=== PATIENT | male | born 1945 | race Caucasian/White ===

== ENCOUNTER 2018-04-05 09:34 | Inpatient (IN) ==
[2018-04-05] MEDS ORDERED: Sod Chloride 0.9% Inj 1,000 ML IV.CONT SCH (10:00)
--- NOTE | 2018-04-05 10:18 | CT ---
EXAM DATE: 04/05/2018 9:59 AM EDT AGE/SEX: 72 years / Male INDICATIONS: Left sided weakness. CLINICAL DATA: This is the patient's initial encounter. Patient reports that signs and symptoms have been present for 1 day and indicates a pain score of 2/10. MEDICAL/SURGICAL HISTORY: Gastroesophageal reflux disease. Cirrhosis. Emphysema. Hepatitis c, re nal cyst. None. RADIATION DOSE: 37.90 CTDI (mGy) COMPARISON: No prior exams available for comparison. TECHNIQUE: CT of the head without contrast. Using automated exposure control and adjustment of the mA and/or kV according to patient size, radiation dose was kept as low as reasonably achievable to ob tain optimal diagnostic quality images. DICOM format image data is available electronically for revi ew and comparison. FINDINGS: Cerebrum: Mild cerebral atrophy is noted. No evidence of midline shift, mass lesion, hemorrhage or a cute infarction. No extraaxial fluid collections are seen. There is a partially calcified left front al extra-axial lesion measuring 16 mm consistent with possible meningioma. Focal small craniectomy de fect is noted adjacent to this lesion. Posterior Fossa: The cerebellum and brainstem are intact. The 4th ventricle is midline. The cerebe llopontine angle is unremarkable. Extracranial: The visualized portion of the orbits is intact. Skull: The calvaria is intact. No evidence of skull fracture. CONCLUSION: 1. Mild cerebral atrophy. 2. No acute hemorrhage, acute infarct, midline shift or extra-axial bleed. 3. Partially calcified left frontal extra-axial lesion measuring 16 mm consistent with possible meni ngioma. Focal small craniectomy defect is noted adjacent to this lesion. . Electronically signed by: Johnnie Sheets MD 04/05/2018 10:17 AM EDT
[2018-04-05 10:20] LABS: Baso # (Auto) 0.1 th/mm3 (0.0-0.2); Eos # (Auto) 0.1 th/mm3 (0.0-0.4); Eos % (Auto) 1.5 % (0.0-4.0); Hematocrit 49.4 % (39.0-51.0); Lymph # (Auto) 2.4 th/mm3 (1.0-4.8); Lymph % (Auto) 29.3 % (9.0-44.0); Mean Corpuscular HGB Conc 34.4 % (32.0-36.0); Mean Corpuscular Hemoglobin 30.1 pg (27.0-34.0); Mean Corpuscular Volume 87.6 fL (80.0-100.0); Mono # (Auto) 0.8 th/mm3 (0.0-0.9); Mono % (Auto) 10.1 % (0.0-8.0); Neut # (Auto) 4.7 th/mm3 (1.8-7.7); Neut % (Auto) 58.1 % (16.0-70.0); Platelet Count 250 th/mm3 (150-450); Red Blood Count 5.64 mil/mm3 (4.50-5.90); Red Cell Distribution Width 14.4 % (11.6-17.2); White Blood Count 8.1 th/mm3 (4.0-11.0)
--- NOTE | 2018-04-05 10:20 | XR ---
EXAM DATE: 04/05/2018 9:55 AM EDT AGE/SEX: 72 years / Male INDICATIONS: Short of breath, loss of balance, AMS CLINICAL DATA: This is the patient's initial encounter. Patient reports that signs and symptoms have been present for 2 days and indicates a pain score of 0/10. MEDICAL/SURGICAL HISTORY: None. None. [place] [facility] [place] . FINDINGS: A single AP view of the chest demonstrates the lungs to be symmetrically aerated without evidence of mass, infiltrate or effusion. The cardiomediastinal contours are unremarkable. Osseous structures a re intact. CONCLUSION: Negative examination. Electronically signed by: Johnnie Sheets MD 04/05/2018 10:19 AM EDT
[2018-04-05 10:33] LABS: Activated Partial Thrombo Time 25.1 sec (24.3-30.1); Prothrombin Time 10.6 sec (9.8-11.6)
[2018-04-05 10:42] LABS: Alanine Aminotransferase 44 U/L (12-78); Albumin 4.1 g/dL (3.4-5.0); Anion Gap 11 meq/L (5-15); Aspartate Aminotransferase 32 U/L (15-37); Blood Urea Nitrogen 14 mg/dL (7-18); Calcium 8.8 mg/dL (8.5-10.1); Carbon Dioxide 28.3 meq/L (21.0-32.0); Chloride 100 meq/L (98-107); Glomerular Filtration Rate 65 mL/min (>89); Glucose,Random 94 mg/dL (74-106); Potassium 3.8 meq/L (3.5-5.1); Sodium 139 meq/L (136-145)
[2018-04-05 10:46] LABS: Alkaline Phosphatase 63 U/L (45-117); Total Protein 8.8 g/dL (6.4-8.2)
[2018-04-05 10:47] LABS: Creatine Kinase 95 U/L (39-308)
--- NOTE | 2018-04-05 11:39 | ED ---
HPI General Chief Complaint: Neuro Symptoms/Deficit Stated Complaint: left side weakness Time Seen by Provider: 04/05/18 09:43 Source: patient and family Mode of arrival: ambulatory Limitations: no limitations History of Present Illness HPI Narrative: Patient is a 72-year-old male with history of hepatitis C and liver cirrhosis from history of alcoholism sober for several years GERD and emphysema secondary to heavy tobacco smoking presenting with complaint of left upper and lower extremity weakness since yesterday noon. Patient was unable to walk and lost balance fell on the bed. There was no head injury or LOC. Symptoms are still present and he was brought in with his by his for evaluation. Family also reported some slurred speech that has resolved by now. Patient was having difficulty getting dressed and using his left upper lower extremities. Patient denies any other symptoms at this time. No headache. His blood pressure is elevated and does not have diagnosis of hypertension. Onset (ago): hour(s) (10) Time: 12:00 Last Observed Normal: 12:00 Timing confirmed by: spouse Location: Reports speech, left arm and left leg History of same: No Severity: mild Quality: Reports weak and tingling Relieving factors: none Exacerbating factors: none Context: Reports sudden onset On Anticoagulants: No Associated symptoms: Reports denies other symptoms Treatments Prior to Arrival: Reports none Related Data Home Medications Medication Instructions Recorded Confirmed No Known Home Medications 04/05/18 04/05/18 Allergies Allergy/AdvReac Type Severity Reaction Status Date / Time codeine Allergy Severe Nausea/Vomi Unverified 04/05/18 09:44 ting Review of Systems ROS: all other systems reviewed are negative [facility] Medical History Medical History Cirrhosis (Acute) Emphysema, unspecified (Acute) H/O gastroesophageal reflux (GERD) (Acute) Hepatitis C (Acute) History of alcoholism (Acute) Renal cyst (Acute) Social History Social History Substance History: No History of Abuse Second Hand Smoke Exposure: Yes Smoking Status: Heavy tobacco smoker Tobacco Type: Cigarettes How Often Do You Have a Drink Containing Alcohol: Monthly or less Recent Travel in [facility] within the Last 8 Weeks: No Recent Out of Country Travel within the Last 8 Weeks: No Immunization History Tetanus Immunization: Unsure Hx Influenza Vaccine This Season: No Exam Narrative Exam Narrative: GENERAL: Alert and oriented no distress SKIN: Focused skin assessment warm/dry. HEAD: Atraumatic. Normocephalic. EYES: Pupils equal and round. No scleral icterus. No injection or drainage. ENT: No nasal bleeding or discharge. Mucous membranes pink and moist. NECK: Trachea midline. No JVD. CARDIOVASCULAR: Regular rate and rhythm. No murmur appreciated. RESPIRATORY: No accessory muscle use. Clear to auscultation. Breath sounds equal bilaterally. GASTROINTESTINAL: Abdomen soft, non-tender, nondistended. Hepatic and splenic margins not palpable. MUSCULOSKELETAL: No obvious deformities. No clubbing. No cyanosis. No edema. PSYCHIATRIC: Appropriate mood and affect; insight and judgment normal. Neuro General: alert, awake, oriented x3, moves all extremities, normal light touch, pain and propioception, CN's II-XI intact bilaterally, normal sensation to monofilament, deep tendon reflexes 2+ bilaterally, not confused, not obtunded and unable to assess gait Motor: strength not 5/5 throughout and strength abnormal left distal upper extremity flexion 4 / 53 / 5 and extension 4 / 53 / 5left distal lower extremity flexion 4 / 53 / 5 and extension 4 / 53 / 5 Sensory Exam: no sensory deficits noted DTR's: Rt Brachioradialis: 2+, Lt Brachioradialis: 2+, Rt Patellar: 2+ and Lt Patellar: 2+ Plantar Reflexes: Downgoing: bilateral Coordination: [id number] test abnormal (Abnormal on left upper extremity) and [id number] test normal (Abnormal on left lower extremity) Course Hospital Course: Patient evaluated in the emergency department for acute stroke. Onset of symptoms was 10 hours ago so he is outside window for TPA however his CT of the head was negative for acute intracranial process. Findings were discussed with neurology recommended MRI MRA and admission for further evaluation. Clonidine was given for hypertension with improvement of his elevated BP however he is symptoms and deficits remained the same. Hemodynamically stable alert and oriented not appearing septic. Initial Documented Vital Signs Temperature 97.3 F L 04/05/18 09:37 Pulse Rate 74 10 09:37 Respiratory Rate 15 04/05/18 09:37 Blood Pressure 172/103 H 04/05/18 09:37 Pulse Oximetry 96 10/05/18 09:37 Last Documented Vital Signs Temperature 98.0 F 04/05/18 16:00 Pulse Rate 72 04/05/18 16:00 Respiratory Rate 18 04/05/18 16:00 Blood Pressure 128/97 H 04/05/18 16:00 Pulse Oximetry 97 04/05/18 16:00 Critical Care Time Critical Care Time: Yes Total Critical Care Time: 30 Attestation: Aggregate critical care time was 30 minutes. Time to perform other separately billable procedures was not included in the critical care time. My time did not include minutes spent treating any other patients simultaneously or on activities that did not directly contribute to the patient's treatment. The services I provided to this patient were to treat and/or prevent clinically significant deterioration that could result in: permanent disability and or I provided critical care services requiring my management, as noted below: Chart data review, documentation time, medication orders and management, vital sign assessments/reviewing monitor data, ordering and reviewing lab tests, ordering and interpreting/reviewing x-rays and diagnostic studies, care of the patient and discussion of the patient with the admitting physicians. NIH Stroke Scale NIHSS Time Completed NIHSS Time Completed: 09:45 NIH Stroke Scale Level of Consciousness: 0-Alert Orientation Questions: 0-Answers both correct Responds to Commands: 0-Both tasks correct Gaze Eye Movement: 0-Horizontal movement WNL Visual Shaffer: 0-No visual field defect Facial Movement: 0-Normal Motor Functions Arm LEFT: 0-No drift Motor Functions Arm RIGHT: 0-No drift Motor Functions Leg LEFT: 1-Drift before 5 seconds Motor Functions Leg RIGHT: 0-No drift Limb Ataxia: 2-Ataxia in two limbs Sensory Loss: 0-No sensory loss Best Language: 0-Normal Articulation: 0-Normal Extinction or Inattention Sensory: 0-Absent Total: 3 Medical Decision Making MDM Narrative Medical decision making narrative: Patient with strokelike deficits and negative CT head. We are obtaining MRI and results are pending at this time based on neurology recommendations. This not a TPA candidate. Aspirin given started on fluids and was admitted for further evaluation. Due to elevated BP Medical Screen Exam Complete: Yes Emergency Medical Condition: Yes Lab Data Lab results reviewed: Yes I reviewed the patient's lab results. Result diagrams: 04/05/18 10:00 04/05/18 10:00 Lab Results 04/05/18 04/05/18 04/05/18 Range/Units 10:00 10:00 10:00 WBC 8.1 (4.0-11.0) th/mm3 RBC 5.64 (4.50-5.90) mil/mm3 Hgb 17.0 (13.0-17.0) gm/dL Hct 49.4 (39.0-51.0) % MCV 87.6 (80.0-100.0) fL MCH 30.1 (27.0-34.0) pg MCHC 34.4 (32.0-36.0) % RDW 14.4 (11.6-17.2) % Plt Count 250 (150-450) th/mm3 MPV 7.0 (7.0-11.0) fL Neut % (Auto) 58.1 (16.0-70.0) % Lymph % (Auto) 29.3 (9.0-44.0) % [place] % (Auto) 10.1 H (0.0-8.0) % Eos % (Auto) 1.5 (0.0-4.0) % Baso % (Auto) 1.0 (0.0-2.0) % Neut # (Auto) 4.7 (1.8-7.7) th/mm3 Lymph # (Auto) 2.4 (1.0-4.8) th/mm3 [place] # (Auto) 0.8 (0.0-0.9) th/mm3 Eos # (Auto) 0.1 (0.0-0.4) th/mm3 Baso # (Auto) 0.1 (0.0-0.2) th/mm3 WBC Differential . Differential Comment Auto diff final PT 10.6 (9.8-11.6) sec INR 1.0 Ratio APTT 25.1 (24.3-30.1) sec Sodium 139 (136-145) meq/L Potassium 3.8 (3.5-5.1) meq/L Chloride 100 (98-107) meq/L Carbon Dioxide 28.3 (21.0-32.0) meq/L Anion Gap 11 (5-15) meq/L BUN 14 (7-18) mg/dL Creatinine 1.11 (0.60-1.30) mg/dL Estimated GFR 65 L (>89) mL/min Random Glucose 94 (74-106) mg/dL Calcium 8.8 (8.5-10.1) mg/dL Total Bilirubin 0.8 (0.2-1.0) mg/dL AST 32 (15-37) U/L ALT 44 (12-78) U/L Alkaline Phosphatase 63 (45-117) U/L Total Creatine Kinase 95 (39-308) U/L Troponin I Less than 0.02 L (0.02-0.05) ng/mL Total Protein 8.8 H (6.4-8.2) g/dL Albumin 4.1 (3.4-5.0) g/dL Urine Color (Yellw/Straw) Urine Clarity (Clear) Urine pH (5.0-8.5) Ur Specific [place] (1.002-1.035) Urine Protein (Neg-Trace) mg/dL Urine Glucose (UA) (Negative) mg/dL Urine Ketones (Negative) mg/dL Urine Occult Blood (Negative) Urine Nitrate (Negative) Urine Bilirubin (Negative) Urine Urobilinogen (Less than 2) mg/dL Ur Leukocyte Esterase (Negative) Urine WBC (0-5) /hpf Micro UA Comment Ur Microscopic Review Urine Culture Comments 04/05/18 Range/Units 15:18 WBC (4.0-11.0) th/mm3 RBC (4.50-5.90) mil/mm3 Hgb (13.0-17.0) gm/dL Hct (39.0-51.0) % MCV (80.0-100.0) fL MCH (27.0-34.0) pg MCHC (32.0-36.0) % RDW (11.6-17.2) % Plt Count (150-450) th/mm3 MPV (7.0-11.0) fL Neut % (Auto) (16.0-70.0) % Lymph % (Auto) (9.0-44.0) % [place] % (Auto) (0.0-8.0) % Eos % (Auto) (0.0-4.0) % Baso % (Auto) (0.0-2.0) % Neut # (Auto) (1.8-7.7) th/mm3 Lymph # (Auto) (1.0-4.8) th/mm3 [place] # (Auto) (0.0-0.9) th/mm3 Eos # (Auto) (0.0-0.4) th/mm3 Baso # (Auto) (0.0-0.2) th/mm3 WBC Differential Differential Comment PT (9.8-11.6) sec INR Ratio APTT (24.3-30.1) sec Sodium (136-145) meq/L Potassium (3.5-5.1) meq/L Chloride (98-107) meq/L Carbon Dioxide (21.0-32.0) meq/L Anion Gap (5-15) meq/L BUN (7-18) mg/dL Creatinine (0.60-1.30) mg/dL Estimated GFR (>89) mL/min Random Glucose (74-106) mg/dL Calcium (8.5-10.1) mg/dL Total Bilirubin (0.2-1.0) mg/dL AST (15-37) U/L ALT (12-78) U/L Alkaline Phosphatase (45-117) U/L Total Creatine Kinase (39-308) U/L Troponin I (0.02-0.05) ng/mL Total Protein (6.4-8.2) g/dL Albumin (3.4-5.0) g/dL Urine Color Yellow (Yellw/Straw) Urine Clarity Clear (Clear) Urine pH 6.0 (5.0-8.5) Ur Specific [place] 1.020 (1.002-1.035) Urine Protein Negative (Neg-Trace) mg/dL Urine Glucose (UA) Negative (Negative) mg/dL Urine Ketones Trace H (Negative) mg/dL Urine Occult Blood Negative (Negative) Urine Nitrate Negative (Negative) Urine Bilirubin Negative (Negative) Urine Urobilinogen Less than 2 (Less than 2) mg/dL Ur Leukocyte Esterase Negative (Negative) Urine WBC 1 (0-5) /hpf Micro UA Comment Culture not ind Ur Microscopic Review Not Reportable Urine Culture Comments Culture not ind Imaging Data Radiologist's impression: Chest X-Ray 04/05/18 09:55 CONCLUSION: Negative examination. Head CT 04/05/18 09:55 CONCLUSION: 1. Mild cerebral atrophy. 2. No acute hemorrhage, acute infarct, midline shift or extra-axial bleed. 3. Partially calcified left frontal extra-axial lesion measuring 16 mm consistent with possible meningioma. Focal small craniectomy defect is noted adjacent to this lesion. . Head MRI 04/05/18 11:35 CONCLUSION: 1. Focal signal abnormality involving the right meg on the diffusion-weighted images indicating acute/subacute infarct. 2. Mild diffuse cerebral atrophy. 3. Scattered old tiny lacunar infarcts are noted within the bilateral basal ganglia. 4. Focal encephalomalacia involving the left frontal lobe likely related to previous trauma in this location. 5. No evidence of enhancing extra-axial mass to suggest meningioma. 6. No acute hemorrhage, midline shift or extra-axial fluid collections. Head MRA 04/05/18 11:35 CONCLUSION: 1. Negative MRA [place] ([place] [facility] [place]) non contrast. ECG Data EKG Prior to Arrival: No Attestation: I personally reviewed and interpreted this ECG as follows: Interpretation: Sinus rhythm with right bundle branch block and a heart rate of 70 bpm. WI 162ms QTC 443ms. Nonspecific ST-T wave abnormalities. No signs of acute ischemia. Discharge Plan Discharge Disposition Patient Disposition: 30 Still Patient Discharge Condition Condition: Stable Discharge Details Diagnosis: CVA (cerebral vascular accident), Hypertension Physicians Team ED Provider: Kevin Olivares Primary Care Provider: Ayanna Schwartz Attending Provider: Romie Jimenez Other Providers: Feliz Rodrigues Discharge Interventions Interventions: ED Discharge Assessment Last Done: 04/05/18 14:28 Status ED Status: Left Department Discharge Information Discharge Date/Time: 04/05/18 14:10
--- NOTE | 2018-04-05 13:09 | MR ---
EXAM DATE: 04/05/2018 12:43 PM EDT AGE/SEX: 72 years / Male INDICATIONS: Left sided weakness. CLINICAL DATA: This is the patient's initial encounter. Patient reports that signs and symptoms have been present for 1 day and indicates a pain score of 0/10. MEDICAL/SURGICAL HISTORY: None. Appendectomy. Arrow to the head. COMPARISON: [facility] [place], [place] HEAD W & W/O CONTRAST, 04/05/2018. [facility] – [place], [place] HEAD W/O CONTRAST, 04/05/2018. . TECHNIQUE: 3D [id number] MRA was performed. Source images, multiplanar STS MIP, and 3D volum e MIP reconstructions were reviewed. FINDINGS: There is excellent visualization of the major intracranial arteries out to the second-order branch ve ssels. There is no evidence for aneurysm, vessel truncation or stenosis, and no evidence for vascula r malformation. CONCLUSION: 1. Negative MRA [place] ([place] [facility] [place]) non contrast. Electronically signed by: Johnnie Sheets MD 04/05/2018 1:07 PM EDT
[2018-04-05] MEDS ORDERED: Gadobutrol PF 7.5 MMOL/7.5 ML Vial (for RAD) IV.SIG ONE (13:13)
[2018-04-05] MEDS ORDERED: Aspirin 325 MG Tablet PO ONE (13:31)
[2018-04-05] MEDS ORDERED: Sod Chloride 0.9% Inj 1,000 ML IV.SIG ONE (13:31)
--- NOTE | 2018-04-05 13:35 | MR ---
EXAM DATE: 04/05/2018 12:43 PM EDT AGE/SEX: 72 years / Male INDICATIONS: Left sided weakness. CLINICAL DATA: This is the patient's initial encounter. Patient reports that signs and symptoms have been present for 1 day and indicates a pain score of 0/10. MEDICAL/SURGICAL HISTORY: None. Appendectomy. Arrow to the head. [place] [facility] [place]. . TECHNIQUE: Multiplanar, multisequence examination of the brain was performed without and with 7 ml Ga davist (gadobutrol) contrast as a single exam dose. FINDINGS: Cerebrum: Mild diffuse cerebral atrophy is noted. Scattered old tiny lacunar infarcts are noted withi n the bilateral basal ganglia. There is focal encephalomalacia involving the left frontal lobe likely related to previous trauma in this location. No evidence of midline shift, mass lesion, hemorrhage o r acute infarction. No extraaxial fluid collections are seen. The pituitary gland and suprasellar c istern are normal in configuration. White Matter: Minimal periventricular and subcortical white matter small vessel ischemic changes are noted bilaterally. Posterior Fossa: There is focal signal abnormality involving the right meg on the diffusion-weighted images indicating acute/subacute infarct. The 4th ventricle is midline. The cerebellopontine angle is unremarkable. The cerebellar tonsils are normal in position. Diffusion Imaging: No focal areas of restricted diffusion are seen. No evidence of acute infarction . Extracranial: The visualized portions of the orbits and paranasal sinuses are unremarkable. Post Contrast: No abnormal areas of parenchymal or dural enhancement. No evidence of blood-brain ba rrier breakdown. CONCLUSION: 1. Focal signal abnormality involving the right meg on the diffusion-weighted images indicating acu te/subacute infarct. 2. Mild diffuse cerebral atrophy. 3. Scattered old tiny lacunar infarcts are noted within the bilateral basal ganglia. 4. Focal encephalomalacia involving the left frontal lobe likely related to previous trauma in this location. 5. No evidence of enhancing extra-axial mass to suggest meningioma. 6. No acute hemorrhage, midline shift or extra-axial fluid collections. Electronically signed by: Johnnie Sheets MD 04/05/2018 1:33 PM EDT
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
[2018-04-05 16:50] LABS: Bilirubin,Urine Negative (Negative); Clarity,Urine Clear (Clear); Color,Urine Yellow (Yellw/Straw); Glucose,Urine (UA) Negative (Negative); Leukocyte Esterase,Urine Negative (Negative); Nitrite,Urine Negative (Negative)
--- NOTE | 2018-04-05 17:46 | ECHRPT ---
Indication: CVA/TIA CONCLUSIONS Normal left ventricular size. Wall thickness is normal. The left ventricular systolic function is normal with an estimated ejection fraction in the range of 55-60%. No definite regional wall motion abnormalities are present. Structurally normal mitral valve. Trace mitral valve regurgitation. There is mild tricuspid valve regurgitation. The estimated pulmonary arterial pressure is 30 mmHg. BP: / HR: Rhythm: MEASUREMENTS (Male / Female) Normal Values Technical Quality: 2D ECHO LV Diastolic Diameter PLAX 4.2 cm 4.2 - 5.9 / 3.9 - 5.3 cm LV Systolic Diameter PLAX 2.8 cm IVS Diastolic Thickness 1.1 cm 0.6 - 1.0 / 0.6 - 0.9 cm LVPW Diastolic Thickness 1.3 cm 0.6 - 1.0 / 0.6 - 0.9 cm LV Relative Wall Thickness 0.6 RV Internal Dim ED PLAX 3.0 cm LVOT Diameter 1.9 cm Aortic Root Diameter 3.4 cm LA Systolic Diameter LX 4.2 cm 3.0 - 4.0 / 2.7 - 3.8 cm LV Ejection Fraction MOD 4C 61.1 % LV Ejection Fraction 4C AL 61.9 % M-MODE Aortic Root Diameter MM 3.7 cm LA Systolic Diameter MM 3.9 cm LA Ao Ratio MM 1.1 AV Cusp Separation MM 2.4 cm DOPPLER AV Peak Velocity 121.0 cm/s AV Peak Gradient 5.9 mmHg LVOT Peak Velocity 91.8 cm/s LVOT Peak Gradient 3.4 mmHg AV Area Cont Eq pk 2.2 cm Mitral E Point Velocity 42.9 cm/s Mitral A Point Velocity 62.2 cm/s Mitral E to A Ratio 0.7 LV E' Lateral Velocity 8.2 cm/s Mitral E to LV E' Lateral Ratio 5.2 LV E' Septal Velocity 5.6 cm/s Mitral E to LV E' Septal Ratio 7.7 TR Peak Velocity 225.0 cm/s TR Peak Gradient 20.3 mmHg Right Atrial Pressure 10.0 mmHg Pulmonary Artery Systolic Pressu 30.3 mmHg Right Ventricular Systolic Press 30.3 mmHg PV Peak Velocity 105.0 cm/s PV Peak Gradient 4.4 mmHg FINDINGS LEFT VENTRICLE Normal left ventricular size. Wall thickness is normal. The left ventricular systolic function is normal with an estimated ejection fraction in the range of 55-60%. No definite regional wall motion abnormalities are present. RIGHT VENTRICLE Normal right ventricular size and systolic function. LEFT ATRIUM The left atrial size is normal. RIGHT ATRIUM The right atrial size is normal. ATRIAL SEPTUM Normal atrial septal thickness without atrial level shunting by limited color doppler interrogation. AORTA The aortic root and proximal ascending aorta are normal in size on limited imaging. MITRAL VALVE Structurally normal mitral valve. Trace mitral valve regurgitation. AORTIC VALVE Trileaflet aortic valve. No aortic valve stenosis or regurgitation. TRICUSPID VALVE There is mild tricuspid valve regurgitation. The estimated pulmonary arterial pressure is 30 mmHg. PULMONARY VALVE No pulmonary valve regurgitation or stenosis. VESSELS The inferior vena cava is normal in size. PERICARDIUM No pericardial effusion. Min Lee MD (Electronically Signed) Final Date:05 April 2018 17:45
--- NOTE | 2018-04-05 18:03 | MR ---
EXAM DATE: 04/05/2018 2:58 PM EDT AGE/SEX: 72 years / Male INDICATIONS: Stroke. CLINICAL DATA: This is the patient's initial encounter. Patient reports that signs and symptoms have been present for 1 day and indicates a pain score of 0/10. MEDICAL/SURGICAL HISTORY: None. Appendectomy. COMPARISON: No prior exams available for comparison. TECHNIQUE: 10 ml Gadavist (gadobutrol) contrast infused MRA (single exam dose) of the extracranial circulation was performed using a neurovascular coil. Postprocessing was performed, including rotati ng sub-volume maximum intensity projections of each carotid artery, rotating full-volume maximum inte nsity projections of both carotid arteries, sagittal and coronal sliding thin-slab reformations of ea ch carotid artery, and left oblique sliding thin-slab reformation through the aortic arch to include the origin of the arch branch vessels. FINDINGS: Aortic Arch : There is a three-vessel origin of the great vessels from the aorta. No evidence of o stial narrowing. Right Carotid : The common carotid artery is intact. The carotid bulb has a normal configuration wi thout ulceration or narrowing. The internal carotid artery lumen is smooth without stenosis. The ex ternal carotid artery is intact. Left Carotid : The common carotid artery is intact. The carotid bulb has a normal configuration wit hout ulceration or narrowing. The internal carotid artery lumen is smooth without stenosis. The ext ernal carotid artery is intact. Vertebrals : The vertebral arteries have a symmetric diameter. No stenotic lesions are seen. CONCLUSION: 1. Negative MRA Carotids. Percent stenosis is calculated using the diameter of the stenotic region over the diameter of the nor mal distal internal carotid artery Electronically signed by: Johnnie Sheets MD 04/05/2018 6:01 PM EDT
[2018-04-05] MEDS ORDERED: Gadobutrol PF 10 MMOL/10 ML Vial (for RAD) IV.SIG ONE (18:20)
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
[2018-04-05] MEDS ORDERED: Famotidine 20 MG Tablet PO ONE (22:15)
[2018-04-06] MEDS: Aspirin 325 MG Tablet PO SCH (08:00)
[2018-04-06 09:03] LABS: Baso # (Auto) 0.1 th/mm3 (0.0-0.2); Baso % (Auto) 0.8 % (0.0-2.0); Eos # (Auto) 0.2 th/mm3 (0.0-0.4); Hematocrit 45.5 % (39.0-51.0); Hemoglobin 15.7 gm/dL (13.0-17.0); Lymph # (Auto) 2.1 th/mm3 (1.0-4.8); Lymph % (Auto) 29.2 % (9.0-44.0); Mean Corpuscular HGB Conc 34.5 % (32.0-36.0); Mean Corpuscular Hemoglobin 29.8 pg (27.0-34.0); Mean Corpuscular Volume 86.2 fL (80.0-100.0); Mean Platelet Volume 7.2 fL (7.0-11.0); Mono # (Auto) 0.9 th/mm3 (0.0-0.9); Mono % (Auto) 12.1 % (0.0-8.0); Neut # (Auto) 3.9 th/mm3 (1.8-7.7); Neut % (Auto) 54.9 % (16.0-70.0); Platelet Count 218 th/mm3 (150-450); Red Blood Count 5.28 mil/mm3 (4.50-5.90); Red Cell Distribution Width 14.5 % (11.6-17.2); White Blood Count 7.1 th/mm3 (4.0-11.0)
[2018-04-06 09:30] LABS: Alanine Aminotransferase 34 U/L (12-78); Albumin 3.4 g/dL (3.4-5.0); Alkaline Phosphatase 53 U/L (45-117); Anion Gap 12 meq/L (5-15); Aspartate Aminotransferase 30 U/L (15-37); Blood Urea Nitrogen 10 mg/dL (7-18); Carbon Dioxide 23.5 meq/L (21.0-32.0); Chloride 103 meq/L (98-107); Chol/HDL Ratio 3.86 Ratio; Cholesterol 125 mg/dL (120-200); Glomerular Filtration Rate 81 mL/min (>89); Glucose,Random 85 mg/dL (74-106); HDL Cholesterol 32.3 mg/dL (40.0-60.0); LDL Cholesterol,Calculated 76 mg/dL (0-99); Potassium 3.6 meq/L (3.5-5.1); Sodium 138 meq/L (136-145); Total Protein 7.6 g/dL (6.4-8.2); Triglycerides 86 mg/dL (42-150)
--- NOTE | 2018-04-06 10:03 | P.PNIM ---
Subjective Interval history: left leg feels stronger still dysarthria and uncoordinated left arm Physical Exam Vital signs: Vital Signs 04/05/18 10:18 04/05/18 10:20 04/05/18 10:21 Temperature Pulse Rate 87 85 Respiratory Rate 16 Blood Pressure 151/75 H Pulse Oximetry 96 95 04/05/18 11:04 04/05/18 13:00 04/05/18 15:00 Temperature 97.8 F Pulse Rate 96 H 66 74 Respiratory Rate 20 21 18 Blood Pressure 132/67 121/72 128/97 H Pulse Oximetry 96 98 97 04/05/18 16:00 04/05/18 17:00 04/05/18 18:00 Temperature 98.0 F Pulse Rate 67 69 66 Respiratory Rate 18 Blood Pressure 128/97 H Pulse Oximetry 97 04/05/18 19:00 04/05/18 20:00 04/05/18 21:00 Temperature 98 F Pulse Rate 61 65 68 Respiratory Rate 18 Blood Pressure 148/99 H Pulse Oximetry 95 04/05/18 22:00 04/05/18 23:00 04/06/18 00:00 Temperature Pulse Rate 62 68 56 L Respiratory Rate 16 Blood Pressure 140/95 H Pulse Oximetry 100 04/06/18 01:00 04/06/18 02:00 04/06/18 03:00 Temperature Pulse Rate 62 64 56 L Respiratory Rate Blood Pressure Pulse Oximetry 04/06/18 04:00 04/06/18 05:00 04/06/18 06:00 Temperature Pulse Rate 60 72 64 Respiratory Rate 16 Blood Pressure 145/95 H Pulse Oximetry 97 04/06/18 07:00 04/06/18 08:00 04/06/18 09:00 Temperature 97.9 F Pulse Rate 64 63 62 Respiratory Rate 18 Blood Pressure 156/80 H Pulse Oximetry 97 04/06/18 09:59 Temperature Pulse Rate 66 Respiratory Rate Blood Pressure Pulse Oximetry Intake & Output 04/05/18 04/06/18 04/06/18 18:59 06:59 18:59 Intake Total 1000 / 1000 1050 / 1050 Output Total 300 / 300 800 / 800 Balance 700 / 700 250 / 250 Weight 77.111 kg 77.1 kg Intake: IV 1000 / 1000 1000 / 1000 NS Inj 1,000 ML @ 70 mls/hr IV. 1000 / 1000 CONT .[id number] [facility] Rx#:[id number] NS Inj 1,000 ML @ Wide Open IV. 1000 / 1000 SIG BOLUS ONE Rx#:[id number] Oral 50 / 50 Output: Urine 300 / 300 800 / 800 Other: Date of Last Bowel Movement 04/05/18 04/05/18 # Bowel Movements 0 dysarthria lying flat left arm uncoordinated. finger to nose test abnormal. 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 Differential Comment Auto diff final PT 10.6 INR 1.0 APTT 25.1 Sodium 139 Potassium 3.8 Chloride 100 Carbon Dioxide 28.3 Anion Gap 11 BUN 14 Creatinine 1.11 Estimated GFR 65 L Random Glucose 94 Calcium 8.8 Total Bilirubin 0.8 AST 32 ALT 44 Alkaline Phosphatase 63 Total Creatine Kinase 95 Troponin I Less than 0.02 L Total Protein 8.8 H Albumin 4.1 Triglycerides Cholesterol LDL Cholesterol, Calc HDL Cholesterol Cholesterol/HDL Ratio Urine Color Urine Clarity Urine pH Ur Specific [place] Urine Protein Urine Glucose (UA) Urine Ketones Urine Occult Blood Urine Nitrate Urine Bilirubin Urine Urobilinogen Ur Leukocyte Esterase Urine WBC Micro UA Comment Ur Microscopic Review Urine Culture Comments 04/05/18 04/06/18 04/06/18 15:18 08:21 08:21 WBC 7.1 RBC 5.28 Hgb 15.7 Hct 45.5 MCV 86.2 MCH 29.8 MCHC 34.5 RDW 14.5 Plt Count 218 MPV 7.2 Neut % (Auto) 54.9 Lymph % (Auto) 29.2 [place] % (Auto) 12.1 H Eos % (Auto) 3.0 Baso % (Auto) 0.8 Neut # (Auto) 3.9 Lymph # (Auto) 2.1 [place] # (Auto) 0.9 Eos # (Auto) 0.2 Baso # (Auto) 0.1 WBC Differential . Differential Comment Auto diff final PT INR APTT Sodium 138 Potassium 3.6 Chloride 103 Carbon Dioxide 23.5 Anion Gap 12 BUN 10 Creatinine 0.91 Estimated GFR 81 L Random Glucose 85 Calcium 8.0 L D Total Bilirubin 1.3 H AST 30 ALT 34 Alkaline Phosphatase 53 Total Creatine Kinase Troponin I Total Protein 7.6 D Albumin 3.4 D Triglycerides 86 Cholesterol 125 LDL Cholesterol, Calc 76 HDL Cholesterol 32.3 L Cholesterol/HDL Ratio 3.86 Urine Color Yellow Urine Clarity Clear Urine pH 6.0 Ur Specific [place] 1.020 Urine Protein Negative Urine Glucose (UA) Negative Urine Ketones Trace H Urine Occult Blood Negative Urine Nitrate Negative Urine Bilirubin Negative Urine Urobilinogen Less than 2 Ur Leukocyte Esterase Negative Urine WBC 1 Micro UA Comment Culture not ind Ur Microscopic Review Not Reportable Urine Culture Comments Culture not ind - Imaging Impressions Neck MRA 04/05/18 00:00 CONCLUSION: 1. Negative MRA Carotids. Percent stenosis is calculated using the diameter of the stenotic region over the diameter of the normal distal internal carotid artery Chest X-Ray 04/05/18 09:55 CONCLUSION: Negative examination. Head CT 04/05/18 09:55 CONCLUSION: 1. Mild cerebral atrophy. 2. No acute hemorrhage, acute infarct, midline shift or extra-axial bleed. 3. Partially calcified left frontal extra-axial lesion measuring 16 mm consistent with possible meningioma. Focal small craniectomy defect is noted adjacent to this lesion. . Head MRI 04/05/18 11:35 CONCLUSION: 1. Focal signal abnormality involving the right meg on the diffusion-weighted images indicating acute/subacute infarct. 2. Mild diffuse cerebral atrophy. 3. Scattered old tiny lacunar infarcts are noted within the bilateral basal ganglia. 4. Focal encephalomalacia involving the left frontal lobe likely related to previous trauma in this location. 5. No evidence of enhancing extra-axial mass to suggest meningioma. 6. No acute hemorrhage, midline shift or extra-axial fluid collections. Head MRA 04/05/18 11:35 CONCLUSION: 1. Negative MRA [place] ([place]) non contrast. Assessment and Plan - Assessment (1) CVA (cerebral vascular accident) Code(s): I63.9 - Cerebral infarction, unspecified Status: Acute Plan: CVA in right meg - Pt is a 72 y/o WF with hx of TBI, hepatitis C, tobacco use and reported liver cirrhosis. - He presented to the ED at [facility] [place] on [place]/05/18 with complaints of left sided weakness and some slurred speech. He reports that he woke up around 330 this morning and had difficulty trying to get himself out of bed due to weakness in his LUE and LLE and fell trying to get up. - Head CT (04/05/18) with noted mild cerebral atrophy, no acute hemorrhage, acute infarct, midline shift or extra-axial bleed, partially calcified left frontal extra-axial lesion measuring 16 mm consistent with possible meningioma and focal small craniectomy defect is noted adjacent to this lesion. - Head MRI (04/05/18) noted focal signal abnormality involving the right meg on the diffusion-weighted images indicating acute/subacute infarct, mild diffuse cerebral atrophy, scattered old tiny lacunar infarcts are noted within the bilateral basal ganglia, focal encephalomalacia involving the left frontal lobe likely related to previous trauma in this location, no evidence of enhancing extra-axial mass to suggest meningioma, and no acute hemorrhage, midline shift or extra-axial fluid collections. - Non contrast MRA [place] and mra neck was negative. - echo no obvious thrombus - Pt was given ASA 325mg - Telemetry to exclude afib - IVF with NS at 70ml/hr - PT/OT/ST - Allow for permissive HTN - Clonidine PRN for SBP over 220/DSP over 110 -passed swallow eval today. advance diet -dc hob flat later today - DVT prophylaxis with SCDs for now Tobacco abuse - Discussed cessation - Nicotine patch Reported liver cirrhosis Hepatitis C, treatment naive - Pt reports that he is being referred to GI for treatment of his Hepatitis C. He will need to followup with that as an outpt. (2) Tobacco abuse Code(s): Z72.0 - Tobacco use Status: Acute (3) Liver cirrhosis Code(s): K74.60 - Unspecified cirrhosis of liver Status: Acute (1) CVA (cerebral vascular accident) Qualifiers: CVA mechanism: other Qualified Code(s): I63.89 - Other cerebral infarction
--- NOTE | 2018-04-06 13:29 | ECG ---
Date Performed: 04/05/2018 Time Performed: 10:01:04 PTAGE: 72 years EKG: Sinus rhythm RIGHT BUNDLE BRANCH BLOCK ABNORMAL ECG INTERPRETATION BASED ON A DEFAULT AGE OF 38 YEARS PREVIOUS TRACING : 04/05/2016 14.54 DOCTOR: Dennys Pearce Interpretating Date/Time 04/06/2018 13:19:05
[2018-04-07] MEDS: Aspirin 325 MG Tablet PO SCH (07:59)
--- NOTE | 2018-04-07 09:26 | P.PNIM ---
Subjective Interval history: pt hasn't been oob yet [employer]. Physical Exam Vital signs: Vital Signs 04/06/18 09:59 04/06/18 10:18 04/06/18 12:00 Temperature 97.9 F Pulse Rate 66 68 64 Respiratory Rate 18 Blood Pressure 130/85 Pulse Oximetry 96 04/06/18 12:31 04/06/18 14:00 04/06/18 15:00 Temperature Pulse Rate 68 62 70 Respiratory Rate Blood Pressure Pulse Oximetry 04/06/18 16:00 04/06/18 16:35 04/06/18 17:58 Temperature 97.9 F Pulse Rate 60 80 67 Respiratory Rate 16 Blood Pressure 127/85 Pulse Oximetry 96 04/06/18 19:00 04/06/18 20:00 04/06/18 21:00 Temperature 97.8 F Pulse Rate 62 62 58 L Respiratory Rate 16 Blood Pressure 117/80 Pulse Oximetry 97 04/06/18 22:00 04/06/18 23:00 04/06/18 23:58 Temperature Pulse Rate 58 L 75 61 Respiratory Rate 16 Blood Pressure 124/80 Pulse Oximetry 98 04/07/18 00:00 04/07/18 01:00 04/07/18 02:00 Temperature Pulse Rate 54 L 60 56 L Respiratory Rate Blood Pressure Pulse Oximetry 04/07/18 03:00 04/07/18 04:00 04/07/18 05:00 Temperature Pulse Rate 53 L 60 58 L Respiratory Rate 16 Blood Pressure 137/82 Pulse Oximetry 96 04/07/18 06:00 04/07/18 07:00 04/07/18 08:00 Temperature 98.2 F Pulse Rate 62 58 L 62 Respiratory Rate 16 Blood Pressure 133/85 Pulse Oximetry 98 04/07/18 08:59 04/07/18 09:20 Temperature Pulse Rate 63 Respiratory Rate Blood Pressure Pulse Oximetry 94 L Intake & Output 04/06/18 04/07/18 04/07/18 18:59 06:59 18:59 Intake Total 1260 / 1260 240 / 240 Output Total 900 / 900 450 / 450 Balance 360 / 360 -210 / -210 Weight 79.5 kg Intake: Oral 1260 / 1260 240 / 240 Output: Urine 900 / 900 450 / 450 Other: Date of Last Bowel Movement 04/05/18 04/05/18 04/05/18 # Bowel Movements 0 heart reg lung cta abd s/nt ext no edema left arm weak data entry. coordination deficits. dysarthria. left leg lying in bed able to ext/flex hip/knee and dorsi/plantar flex Results - Labs CBC & Chem 7: 04/06/18 08:21 04/06/18 08:21 Laboratory Results - last 24 hr 04/06/18 08:21 Sodium 138 Potassium 3.6 Chloride 103 Carbon Dioxide 23.5 Anion Gap 12 BUN 10 Creatinine 0.91 Estimated GFR 81 L Random Glucose 85 Calcium 8.0 L D Total Bilirubin 1.3 H AST 30 ALT 34 Alkaline Phosphatase 53 Total Protein 7.6 D Albumin 3.4 D Triglycerides 86 Cholesterol 125 LDL Cholesterol, Calc 76 HDL Cholesterol 32.3 L Cholesterol/HDL Ratio 3.86 Assessment and Plan - Assessment (1) CVA (cerebral vascular accident) Code(s): I63.9 - Cerebral infarction, unspecified Status: Acute Plan: CVA in right meg - Pt is a 72 y/o WF with hx of TBI, hepatitis C, tobacco use and reported liver cirrhosis. - [place] [facility] [place] with complaints of left sided weakness and some slurred speech. He reports that he woke up around 330 this morning and had difficulty trying to get himself out of bed due to weakness in his LUE and LLE and fell trying to get up. - Head CT (04/05/18) with noted mild cerebral atrophy, no acute hemorrhage, acute infarct, midline shift or extra-axial bleed, partially calcified left frontal extra-axial lesion measuring 16 mm consistent with possible meningioma and focal small craniectomy defect is noted adjacent to this lesion. - Head MRI (04/05/18) noted focal signal abnormality involving the right meg on the diffusion-weighted images indicating acute/subacute infarct, mild diffuse cerebral atrophy, scattered old tiny lacunar infarcts are noted within the bilateral basal ganglia, focal encephalomalacia involving the left frontal lobe likely related to previous trauma in this location, no evidence of enhancing extra-axial mass to suggest meningioma, and no acute hemorrhage, midline shift or extra-axial fluid collections. - Non contrast MRA [place] and mra neck was negative. - echo no obvious thrombus - Pt was given ASA 325mg - Telemetry to exclude afib. none so far - IVF with NS at 70ml/hr - PT/OT/ST - Allow for permissive HTN - Clonidine PRN for SBP over 220/DSP over 110 -passed swallow eval. advance diet - DVT prophylaxis with SCDs for now reassess with PT/OT/ST today CM consult for rehab placement. IF neurologically stable possible dc tomorrow. neuro following Tobacco abuse - Discussed cessation - Nicotine patch Reported liver cirrhosis Hepatitis C, treatment naive - Pt reports that he is being referred to GI for treatment of his Hepatitis C. He will need to followup with that as an outpt. (2) Tobacco abuse Code(s): Z72.0 - Tobacco use Status: Acute (3) Liver cirrhosis Code(s): K74.60 - Unspecified cirrhosis of liver Status: Acute (1) CVA (cerebral vascular accident) Qualifiers: CVA mechanism: other Qualified Code(s): I63.89 - Other cerebral infarction
[2018-04-08] MEDS: Aspirin 325 MG Tablet PO SCH (09:05)
[2018-04-08] MEDS ORDERED: Lisinopril 10 MG Tablet PO ONE (17:10)
--- NOTE | 2018-04-08 17:22 | P.PNIM ---
Subjective Interval history: Pt without any specific complaints Still with weakness in the LUE and LLE Physical Exam Vital signs: Vital Signs 04/07/18 17:55 04/07/18 19:00 04/07/18 20:00 Temperature 97.9 F Pulse Rate 75 70 64 Respiratory Rate 16 Blood Pressure 120/77 Pulse Oximetry 95 04/07/18 21:00 04/07/18 22:00 04/07/18 23:00 Temperature Pulse Rate 54 L 60 54 L Respiratory Rate Blood Pressure Pulse Oximetry 04/08/18 00:00 04/08/18 01:00 04/08/18 02:00 Temperature Pulse Rate 66 52 L 62 Respiratory Rate 16 Blood Pressure 142/91 H Pulse Oximetry 96 04/08/18 03:00 04/08/18 03:55 04/08/18 04:00 Temperature Pulse Rate 55 L 64 58 L Respiratory Rate 18 Blood Pressure 134/89 Pulse Oximetry 100 04/08/18 05:00 04/08/18 06:00 04/08/18 07:00 Temperature Pulse Rate 52 L 52 L 80 Respiratory Rate Blood Pressure Pulse Oximetry 04/08/18 08:00 04/08/18 09:00 04/08/18 10:00 Temperature 97.4 F L Pulse Rate 66 77 68 Respiratory Rate 16 Blood Pressure 141/93 H Pulse Oximetry 99 04/08/18 11:00 04/08/18 12:00 04/08/18 13:00 Temperature 97.6 F Pulse Rate 75 76 66 Respiratory Rate 18 Blood Pressure 140/95 H Pulse Oximetry 98 04/08/18 14:00 04/08/18 15:00 04/08/18 16:00 Temperature 98.0 F Pulse Rate 78 60 67 Respiratory Rate 18 Blood Pressure 144/92 H Pulse Oximetry 99 Intake & Output 04/07/18 04/08/18 04/08/18 18:59 06:59 18:59 Intake Total 1020 / 1020 240 / 240 Output Total 650 / 650 650 / 650 Balance 370 / 370 -410 / -410 Weight 79 kg Intake: Oral 1020 / 1020 240 / 240 Output: Urine 650 / 650 650 / 650 Other: Date of Last Bowel Movement 04/07/18 04/07/18 04/07/18 # Bowel Movements 1 0 Narrative: GENERAL: NAD, AAOx3 CARDIO: Regular. RESP: No accessory muscle use. Pleural rub bilaterally. ABD: +BS, soft, non-tender, nondistended. EXT: No edema. No obvious deformities. 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 Weakness in the LLE and decreased dorsiflexion on the left foot. Dysarthria. Results - Labs CBC & Chem 7: 04/06/18 08:21 04/06/18 08:21 - Imaging Neck MRA 04/05/18 00:00 CONCLUSION: 1. Negative MRA Carotids. Percent stenosis is calculated using the diameter of the stenotic region over the diameter of the normal distal internal carotid artery Chest X-Ray 04/05/18 09:55 CONCLUSION: Negative examination. Head CT 04/05/18 09:55 CONCLUSION: 1. Mild cerebral atrophy. 2. No acute hemorrhage, acute infarct, midline shift or extra-axial bleed. 3. Partially calcified left frontal extra-axial lesion measuring 16 mm consistent with possible meningioma. Focal small craniectomy defect is noted adjacent to this lesion. . Head MRI 04/05/18 11:35 CONCLUSION: 1. Focal signal abnormality involving the right meg on the diffusion-weighted images indicating acute/subacute infarct. 2. Mild diffuse cerebral atrophy. 3. Scattered old tiny lacunar infarcts are noted within the bilateral basal ganglia. 4. Focal encephalomalacia involving the left frontal lobe likely related to previous trauma in this location. 5. No evidence of enhancing extra-axial mass to suggest meningioma. 6. No acute hemorrhage, midline shift or extra-axial fluid collections. Head MRA 04/05/18 11:35 CONCLUSION: 1. Negative MRA [place] ([place]) non contrast. Assessment and Plan - Assessment (1) CVA (cerebral vascular accident) Code(s): I63.9 - Cerebral infarction, unspecified Status: Acute Plan: CVA in right meg - Pt is a 72 y/o WF with hx of TBI, hepatitis C, tobacco use and reported liver cirrhosis. - [place] [facility] [place] with complaints of left sided weakness and some slurred speech. He reports that he woke up around 330 this morning and had difficulty trying to get himself out of bed due to weakness in his LUE and LLE and fell trying to get up. - Head CT (04/05/18) with noted mild cerebral atrophy, no acute hemorrhage, acute infarct, midline shift or extra-axial bleed, partially calcified left frontal extra-axial lesion measuring 16 mm consistent with possible meningioma and focal small craniectomy defect is noted adjacent to this lesion. - Head MRI (04/05/18) noted focal signal abnormality involving the right meg on the diffusion-weighted images indicating acute/subacute infarct, mild diffuse cerebral atrophy, scattered old tiny lacunar infarcts are noted within the bilateral basal ganglia, focal encephalomalacia involving the left frontal lobe likely related to previous trauma in this location, no evidence of enhancing extra-axial mass to suggest meningioma, and no acute hemorrhage, midline shift or extra-axial fluid collections. - Non contrast MRA [place] and mra neck was negative. - echo no obvious thrombus - Pt was given ASA 325mg - Telemetry to exclude afib. none so far - Start Lisinopril 10mg po daily - Clonidine PRN for SBP over 220/DSP over 110 - passed swallow eval. advance diet - DVT prophylaxis with SCDs for now - Cont. PT/OT/ST today - CM consult for rehab placement. Pt being evaluated for [facility]. Awaiting approval from [facility] for [facility] - Anticipate d/c tomorrow to Inpt rehab if [facility] approves. Tobacco abuse - Discussed cessation Reported liver cirrhosis Hepatitis C, treatment naive - Pt reports that he is being referred to GI for treatment of his Hepatitis C. He will need to followup with that as an outpt. (2) Tobacco abuse Code(s): Z72.0 - Tobacco use Status: Acute (3) Liver cirrhosis Code(s): K74.60 - Unspecified cirrhosis of liver Status: Acute - Attending Attestation Patient examined. Assessment and plan formulated with Naima Lindsey PA-C. I agree with the above. Pt continues with left arm weakness. Pt is eager for transfer to [place] to begin rehabilitation. Pt had NO new complaints. (1) CVA (cerebral vascular accident) Qualifiers: CVA mechanism: other Qualified Code(s): I63.89 - Other cerebral infarction
[2018-04-09] MEDS ORDERED: Lisinopril 10 MG Tablet PO SCH (09:00)
[2018-04-09] MEDS: Aspirin 325 MG Tablet PO SCH (09:18)
[2018-04-09 09:26] VITALS: TEMP 97.6
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
[2018-04-09 11:23] VITALS: O2SAT 98
[2018-04-09 11:59] VITALS: BP 146/84; RESP 16
[2018-04-09 13:07] VITALS: PULSE 75
== END 2018-04-09 13:34 ==
LOC: NEPC 09:34 → NEDA 13:16 → HCIS 14:10
PROVIDERS: ADMIT Hospitalist; ATTEND Hospitalist